=== PATIENT | female | born 2000 | race Native Hawaiian/Other Pacific Islander ===

== ENCOUNTER 2020-06-14 12:37 | Emergency (ER) | payer BC ==
[~2020-06-14] VITALS: Ht 165.1 cm; Wt 117.9 kg
[2020-06-14] MEDS ORDERED: ADDERALL 10 MG10 MG PO (12:44)
[2020-06-14 15:26] VITALS: BP 126/78
== END 2020-06-14 15:27 | disposition home or self-care (01) ==
LOC: ER 12:37
DX: S93.401A Sprain of unspecified ligament of right ankle, initial encounter (principal); Z79.899 Other long term (current) drug therapy; X50.1XXA Overexertion from prolonged static or awkward postures, initial encounter; Y93.89 Activity, other specified; Y92.89 Other specified places as the place of occurrence of the external cause; Y99.8 Other external cause status